=== PATIENT | male | born 1995 | race Caucasian/White ===

== ENCOUNTER 2024-11-16 18:41 | Emergency (ER) | payer OTHER, SELFPAY ==
[2024-11-16 19:02] VITALS: BP 139/88; PULSE 89; RESP 17; TEMP 36.6; O2SAT 98; BMI 33.9
--- NOTE | 2024-11-16 19:30 | W.ED.BACK ---
HPI - Back Pain/Injury General: Chief Complaint: Back Pain/Injury Stated Complaint: Lower back Pain disc problems Time Seen by Provider: 11/16/24 18:50 Source: patient Mode of arrival: ambulatory Limitations: no limitations History of Present Illness: Patient is a 29-year-old male who presents the emergency department complaining of low back pain beginning yesterday. 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 He states that before he went to longterm last year, he was seeing a doctor in [facility] who had scheduled an MRI for him, and states that he has known disc pathology. Denies any bowel or bladder incontinence or saddle anesthesia. Does not report any fevers, trauma, unexplained weight loss, neurological symptoms, IVDU, steroid use, or history of cancer. Unrelated to his back pain he states he has been having left ear pain and compares it to prior external ear infection. MD elicited complaint: back pain Pertinent past history: prior back pain Onset (ago): day(s) Timing: constant Severity: severe Similar Symptoms Previously: Yes Location: lumbar spine Radiation: left upper leg Exacerbating factors: movement Relieving factors: immobilization Context: while lifting Associated symptoms: Deny abdominal pain, difficulty walking, fecal incontinence, fever(s) or syncope Related Data Previous Rx's ?Medication ?Instructions ?Recorded ciprofloxacin 0.3 %-dexamethasone 4 drp otic (ear) BID 7 days #7.5 mL 11/16/24 0.1 % ear drops,suspension ketorolac 10 mg tablet 10 mg PO Q8H PRN pain #15 tabs 11/16/24 methocarbamol 750 mg tablet 750 mg PO Q8H 5 days #15 tabs 11/16/24 prednisone 20 mg tablet 60 mg (3 x 20 mg) PO ONCE 5 days 11/16/24 #15 tabs Allergies Allergy/AdvReac Type Severity Reaction Status Date / Time amoxicillin (From Augmentin) Allergy ALGY-Hives Verified 11/16/24 19:06 clavulanic acid (From Allergy ALGY-Hives Verified 11/16/24 19:06 Augmentin) guaifenesin (From Robitussin) Allergy ALGY-Rash Verified 11/16/24 19:06 Penicillins Allergy ALGY-Rash Verified 11/16/24 19:06 Review of Systems General: Reports: 10 or more systems reviewed and unremarkable except in HPI and below Const: Reports: other (denies trauma); Denies: fever(s), change in weight or night sweats ENMT: Reports: ear or mastoid pain Card: Denies: chest pain, lightheadedness or syncope Resp: Denies: dyspnea GI: Denies: abdominal pain or fecal incontinence : Denies: urinary incontinence Musc: Reports: back pain, extremity pain (Left lower) and limited range of motion; Denies: neck pain Skin/Breast: Denies: rash or skin pain Neuro: Denies: headache(s), numbness in extremities, weakness in extremities, sensory changes, lack of coordination, difficulty walking, frequent falls or involuntary movements Physical Exam Const: COMMON NORMALS: no acute distress, patient oriented x3, no limitations, healthy appearing and alert HENMT: EXTERNAL AUDITORY CANAL: Abnormal EAC present EAC laterality: left Details: erythema Resp: COMMON NORMALS: normal respiratory effort, No retractions, No use of accessory muscles and clear to auscultation bilaterally AUSCULTATION: clear to auscultation bilaterally Cardio: COMMON NORMALS: regular rate, regular rhythm, S1 normal heart sound present and S2 normal heart sound present RATE: regular rate RHYTHM: regular rhythm HEART SOUNDS: S1 normal heart sound present and S2 normal heart sound present Back/Pelvis: LUMBAR SPINE/LOWER BACK: Yes straight leg raise positive left OTHER: Normal visual examination. Easily reproducible tenderness palpation to lower lumbar spine as well as to paralumbar muscles. Range of motion intact, pain reported with lateral rotation. Extremity: COMMON NORMALS: normal to inspection and full ROM Neuro: COMMON NORMALS: patient oriented x3, moves all extremities, no focal motor deficits, no sensory deficits noted, deep tendon reflexes 2+ bilaterally and gait normal SENSORIUM/ORIENTATION: Yes alert OTHER: L3, L4, L5, and S1 nerve sensations intact. Normal knee jerk and ankle jerk reflexes. Skin: COMMON NORMALS: no rashes or lesions noted GENERAL SKIN EXAM: no rashes or lesions noted Course Vital Signs: Vital signs: Vital Signs Temperature 97.9 F 11/16/24 19:02 Pulse Rate 89 11/16/24 19:02 Respiratory Rate 17 11/16/24 19:02 Blood Pressure 139/88 11/16/24 19:02 Pulse Oximetry 98 11/16/24 19:02 Oxygen Delivery Me thod Room Air 11/16/24 19:02 MDM - Back Pain/Injury Medical Decision Making Patient has known degenerative disc disease in his lumbar back, states he reinjured yesterday hip picking up a heavy log for work. No trauma was reported, so no imaging necessary at this time. Will treat with medications that he states have worked for him in the past, refer him to Ortho/spine as he may require MRI for any further instances of pain. Also had reported some left ear pain there was some redness to his left EAC so we will treat with Ciprodex. Ultimately he had no red flag symptoms on history or physical, did give return precautions to which he verbalized understanding. No radiology studies performed this visit Discharge Plan Discharge Patient Disposition: Home Clinical Impression: Lumbar radiculopathy Condition: Stable Prescriptions: New prednisone 20 mg tablet 60 mg PO ONCE 5 Days Qty: 15 0RF ketorolac 10 mg tablet 10 mg PO Q8H PRN (Reason: pain) Qty: 15 0RF methocarbamol 750 mg tablet 750 mg PO Q8H 5 Days Qty: 15 0RF ciprofloxacin-dexamethasone 0.3-0.1 % drops,suspension 4 drp otic (ear) BID 7 Days Qty: 7.5 0RF Discharge Orders: Discharge ED (Routine); Ordered 11/16/24 Ordered By: Yadiel Rea Patient Instructions: Lumbar Radiculopathy (ED) Activity Restrictions/Additional Instructions: Medications as prescribed. Heat to your low back. Follow-up with Ortho/spine. Gentle range of motion exercises and stretches as tolerated. Return with any bowel or bladder incontinence, numbness in your groin region, fevers, or other concerning symptoms you have. Print Language: Afghan Coding Level of Care Code ED [facility] for Arian Todd
[2024-11-16] MEDS: dexamethasone 10 mg/mL INJ IM (19:35)
[2024-11-16] MEDS: ciprofloxacin-dexameth Otic Susp 7.5 mL Btl 4 DROP EAR-LEFT (19:37)
[2024-11-16] MEDS: ketorolac 60 mg/2 mL INJ IM (19:37)
[2024-11-16] MEDS: orphenadrine 30 mg/mL Inj 2 mL 60 MG IM (19:37)
[2024-11-16 20:06] VITALS: BP 129/82; PULSE 82; O2SAT 97
--- NOTE | 2024-11-17 07:08 | DCPLANNER ---
messaged ortho for er f/u
== END 2024-11-16 20:08 | disposition home or self-care (01) ==
PROVIDERS: Emergency Provider Physician Assistant
DX: M54.16 Radiculopathy, lumbar region (principal)
CPT/HCPCS: 96372; 99284; J1100; J1885; J2360

== ENCOUNTER → 2024-11-22 13:51 | Outpatient (BNVA) | payer OTHER, SELFPAY | PROVIDERS: Visit Provider Orthopaedic Surgery | DX: M54.16 Radiculopathy, lumbar region (principal) | CPT/HCPCS: 72110 ==

== ENCOUNTER 2025-05-06 11:18 | Emergency (ER) | payer OTHER, SELFPAY ==
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
[2025-05-06 11:36] VITALS: BP 135/85; PULSE 77; RESP 17; TEMP 36.9; O2SAT 95; BMI 35.4
--- NOTE | 2025-05-06 13:35 | W.ED.BACK ---
HPI - Back Pain/Injury General: Chief Complaint: Back Pain/Injury Stated Complaint: low lt back pain Time Seen by Provider: 05/06/25 12:50 History of Present Illness: Chief complaint is low back pain. The patient states he has recurrent low back pain and left low back. No fall or trauma. Related Data Previous Rx's ?Medication ?Instructions ?Recorded ketorolac 10 mg tablet 10 mg PO Q8H PRN pain #15 tabs 11/16/24 methocarbamol 500 mg tablet 500 mg PO Q8H PRN pain #30 tabs 05/06/25 Allergies Allergy/AdvReac Type Severity Reaction Status Date / Time amoxicillin (From Augmentin) Allergy ALGY-Hives Verified 11/22/24 14:08 clavulanic acid (From Allergy ALGY-Hives Verified 11/22/24 14:08 Augmentin) guaifenesin (From Robitussin) Allergy ALGY-Rash Verified 11/22/24 14:08 Penicillins Allergy ALGY-Rash Verified 11/22/24 14:08 PFS ED PFSH: Social History Smoking and tobacco/nicotine status: current every day tobacco/nicotine user Physical Exam Narrative: EXAM NARRATIVE: Patient sitting on the side of the bed. He winces and has pain with certain movements. He is able to swing his legs into the bed and lay back flat for me. No abdominal tenderness. He is alert and oriented. Pupils equal reactive. Neck is supple. Skin is warm and dry. Heart regular rhythm. Lung sounds are clear. Extremities warm well-perfused. No calf tenderness or pitting edema. No rash in exposed areas. Intact motor and sensation in his legs including inner thighs. He moves his legs freely. No vertebral tenderness over his back. He has mild tenderness diffusely across the low back. He points to the SI joint area on the left as the location of the pain. Course Vital Signs: Vital signs: Vital Signs Temperature 98.4 F 05/06/25 11:36 Pulse Rate 77 05/06/25 11:36 Respiratory Rate 17 05/06/25 11:36 Blood Pressure 135/85 05/06/25 11:36 Pulse Oximetry 95 05/06/25 11:36 Oxygen Delivery Me thod Room Air 05/06/25 11:36 MDM - Back Pain/Injury Medical Decision Making Patient with clearly reproducible pain with movement suggestive of musculoskeletal etiology. Denies abdominal pain. Denies loss of bowel or bladder control or numbness weakness or tingling in his arms or legs. Denies fall or trauma. He states he has had pain in that area intermittently for a long time where it flares up about every 6 months. He did use drugs in the past more than 11 months ago but states he has been completely clean since then. No fever. No relapse. I advised him the importance of this question and the change in his workup and risk of epidural abscess or discitis or osteomyelitis and reasoning. The patient states he is certain he has not used any drugs and he does not want anything that will show up on his drug screen. He states that he has had the same symptom multiple times in the past and does not think it is anything new. Denies history of aneurysms. Denies urinary symptoms to suggest renal colic or UTI. I advised patient broad differential limits of ED evaluation and symptomatic treatment and outpatient follow-up. I ordered Decadron shot here 10 mg IM for pain and Toradol 30 mg IM after informed discussion of patient. He states he has had good response to steroids in the past. Will try Robaxin. He states he has a prescription for Flexeril at home but has not taken any of it. I advised him not to combine Robaxin and Flexeril but to try 1 or the other. I advised him on NSAID use and balance risk and benefit. I advised limits of ED evaluation and signs symptoms of worsening to watch and return for. He denies any history of cancer or immunosuppression. Patient capable and informed and requesting continued outpatient management. No radiology studies performed this visit Discharge Plan Discharge Patient Disposition: Home Clinical Impression: Acute low back pain Condition: Stable Prescriptions: New methocarbamol 500 mg tablet 500 mg PO Q8H PRN (Reason: pain) Qty: 30 0RF Rx Instructions: you may take up to 3 tabs every 8 hours however try to reduce down to lower dose as soon as possible No Action ketorolac 10 mg tablet 10 mg PO Q8H PRN (Reason: pain) Qty: 15 0RF Discharge Orders: Discharge ED (Routine); Ordered 05/06/25 Ordered By: Pepito Lawson Referrals: Topher Alarcon MD [Primary Care Provider, Specialist] Patient Instructions: Opioid Safety, Pain Management, Patient Portal & Janneth Instructions Activity Restrictions/Additional Instructions: Avoid heavy lifting. Return immediately if loss of bowel or bladder control, weakness in your legs, fever, getting worse instead of better, any concerns. Please follow-up with your doctor within the next 3 days for recheck. Please come back if any worse. Do not take ketorolac if you have any leftover. Try taking ibuprofen instead [id number] as directed but limit use to a few days at a time and take with food and water to protect your stomach. Make sure to drink plenty of fluid when you take it to protect your kidneys. Print Language: [place] Coding Level of Care Code ED [facility] for Arian Todd
== END 2025-05-06 13:50 | disposition home or self-care (01) ==
PROVIDERS: Emergency Provider Emergency Medicine
DX: M54.50 Low back pain, unspecified (principal); Z72.0 Tobacco use
CPT/HCPCS: 96372; 99284; J1100; J1885

== ENCOUNTER 2025-07-04 19:17 | Emergency (ER) | payer OTHER, SELFPAY ==
[2025-07-04 19:21] VITALS: BP 157/91; PULSE 85; RESP 18; TEMP 36.7; O2SAT 97; BMI 34.7
--- NOTE | 2025-07-04 19:44 | XRR_ITS ---
PROCEDURE INFORMATION: Exam: XR Right Knee Exam date and time: 07/04/2025 7:57 PM Age: 29 years old Clinical indication: Injury or trauma; Other: Twisted RT knee; Sprain or strain; Patella or knee; Right; Prior surgery; Surgery date: 6+ months; Additional info: R knee pain TECHNIQUE: Imaging protocol: Radiologic exam of the right knee. Views: 3 views. COMPARISON: No relevant prior studies available. FINDINGS: Bones/joints: Patient has history of prior ACL repair procedure. There is no acute fracture or dislocation. There is no significant joint effusion. The small narrowing of the medial knee compartment. Soft tissues: Normal. XR/XR knee RT 3V* [id number] IMPRESSION: No acute fracture or dislocation No significant joint effusion. Possible mild narrowing medial compartment degenerative related.
--- NOTE | 2025-07-04 19:55 | ED_ITS ---
HPI - Extremity Problem General: Chief complaint: Extremity Injury, Lower Stated complaint: Rt Knee Pain Time Seen by Provider: 07/04/25 19:43 History of Present Illness: 29yo M w/cc of R acute R knee pain. Leatha anderson states that while playing basketball, he twisted on his right knee and felt a pop and has pain mostly of the medial aspect of his knee and mild knee swelling. Patient states that he has a history of previous meniscus injury and surgery. He has not had a fever and denies red, erythematous joint and continues to be able to ambulate, flex his knee and extend his knee. No motor or sensory deficits. Related Data Previous Rx's ?Medication ?Instructions ?Recorded ketorolac 10 mg tablet 10 mg PO Q8H PRN pain #15 ta bs 11/16/24 methocarbamol 500 mg tablet 500 mg PO Q8H PRN pain #30 tabs 05/06/25 ketorolac 10 mg tablet 10 mg PO Q6H pain 5 days #20 tabs 07/04/25 oxycodone 5 mg tablet 5 mg PO ONCE PRN pain (scale score 07/04/25 7-10) #5 tabs Allergies Allergy/AdvReac Type Severity Reaction Status Date / Time amoxicillin (From Augmentin) Allergy ALGY-Hives Verified 11/22/24 14:08 clavulanic acid (From Allergy ALGY-Hives Verified 11/22/24 14:08 Augmentin) guaifenesin (From Robitussin) Allergy ALGY-Rash Verified 11/22/24 14:08 Penicillins Allergy ALGY-Rash Verified 11/22/24 14:08 [facility] ED PFSH: Social History Smoking and tobacco/nicotine status: current every day tobacco/nicotine user Physical Exam Narrative: EXAM NARRATIVE: Vital signs were reviewed. Patient is alert and oriented. Patient is breathing comfortably, no increased WOB or accessory muscle use. SpO2 is above 95% on RA. No hypotension or tachycardia. R knee is has mild to moderate swelling but no warmth or erythema. He is able to flex his knee, extensor mechanism is intact. Patient is neurovascularly intact. He has pain w/palpation of the medial aspect of his knee and around the patella. Course Vital Signs: Vital signs: Vital Signs Temperature 98.1 F 07/04/25 19:21 Pulse Rate 85 07/04/25 19:21 Respiratory Rate 18 07/04/25 19:21 Blood Pressure 157/91 07/04/25 19:21 Pulse Oximetry 97 07/04/25 19:21 Oxygen Delivery Me thod Room Air 07/04/25 19:21 MDM - Extremity (Nontraumatic) Medical Decision Making Patient is a 29-year-old male presenting with a chief complaint of acute right knee pain after twisting it during basketball game. Differential diagnosis includes, but is not limited to, fracture, dislocation, sprain, contusion, hematoma/ecchymosis, septic arhritis, other. Patient was evaluated with x-rays which I personally reviewed and interpreted and I do not appreciate acute fracture, dislocation or large joint effusion. Radiology interpretation: IMPRESSION: No acute fracture or dislocation No significant joint effusion. Based on patient's history, I do suspect a meniscus injury but he can have MRI done outpatient. Patient was provided instructions on supportive care at home, given return precautions and discharged with recommendation for follow-up with primary care physician. Lab Data Radiology Impressions Knee X-Ray 07/04/25 19:44 IMPRESSION: No acute fracture or dislocation No significant joint effusion. Possible mild narrowing medial compartment degenerative related. XR interpretation done by ED provider, pending radiology final review Discharge Plan Discharge Patient Disposition: Home Clinical Impression: Right knee sprain Qualifiers: Encounter type: initial encounter Involved ligament of knee: unspecified ligament Qualified Code(s): S83.91XA - Sprain of unspecified site of right knee, initial encounter Condition: Stable Prescriptions: New ketorolac 10 mg tablet 10 mg PO Q6H 5 Days Qty: 20 0RF oxycodone 5 mg tablet 5 mg PO ONCE PRN (Reason: pain (scale score 7-10)) Qty: 5 0RF No Action ketorolac 10 mg tablet 10 mg PO Q8H PRN (Reason: pain) Qty: 15 0RF methocarbamol 500 mg tablet 500 mg PO Q8H PRN (Reason: pain) Qty: 30 0RF Rx Instructions: you may take up to 3 tabs every 8 hours however try to reduce down to lower dose as soon as possible Discharge Orders: Discharge ED (Routine); Ordered 07/04/25 Ordered By: Dee Sousa Patient Instructions: Knee Sprain (ED), Opioid Safety, Pain Management, Patient Portal & Janneth Instructions Activity Restrictions/Additional Instructions: Take toradol and 500-1000mg tylenol for pain every six hours for the next five days. If you have severe breakthrough pain, you may take an oxycodone. Rest, ice and elevate your injured extremity. You may ambulate as tolerated, use crutches to help relieve pain and discomfort. Please continue to monitor your condition closely at home. If your condition worsens or additional concerns arise, please return to the emergency department for reassessment. Please follow-up with your primary care physician in 1 to 2 weeks. If you continue to have pain, I recommend you talk to your doctor about ordering an MRI to evaluate ligaments. 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
== END 2025-07-04 21:50 | disposition home or self-care (01) ==
PROVIDERS: Emergency Provider Emergency Medicine
DX: S83.91XA Sprain of unspecified site of right knee, initial encounter (principal); X50.1XXA Overexertion from prolonged static or awkward postures, initial encounter; Y93.67 Activity, basketball
CPT/HCPCS: 73562; 96372; 99284; J1885; J9999